=== PATIENT | female | born 1990 | race Hispanic/Latino ===

== ENCOUNTER 2021-03-17 23:39 | Inpatient (IN) | payer BC ==
[2021-03-18 00:07] VITALS: BMI 31.6
[2021-03-18] MEDS ORDERED: hydrALAZINE 20 MG/ML VIAL SLOW IVP PRN (00:21)
[2021-03-18] MEDS ORDERED: Butorphanol Tartrate 1 MG/ML VIAL ONE (00:23)
[2021-03-18 00:24] LABS: Bilirubin Neg (Negative); Blood, Urine 150 (Negative); Clarity Cloudy (Clear); Glucose, Urine (Dipstick) Normal (Negative); Ketone, Urine 15 mg/dL (Negative); Leukocyte 500 (Negative); Nitrite Negative (Negative); Protein, Urine (Dipstick) 30 mg/dl (Neg-Trace); Specific Gravity, Urine 1.015 (1.002-1.036); Urobilinogen Normal mg/dL (Less than 2); pH, Urine 6.5 (5.0-9.0)
[2021-03-18] MEDS ORDERED: Ondansetron PF 4 MG/2 ML Vial IVP PRN (00:28)
[2021-03-18] MEDS ORDERED: Lactated Ringer's 1,000 ML IV SCH ×2 (00:30)
[2021-03-18 00:34] LABS: Bacteria/HPF 3+ HPF (None Seen); RBC/HPF 21-50 HPF (0-3)
[2021-03-18 00:35] LABS: Urine Culture Reflex No No
[2021-03-18] MEDS: Butorphanol Tartrate 1 MG/ML VIAL SLOW IVP PRN ×2 (00:35→02:09)
[2021-03-18 01:04] LABS: #Eosinphils 0.1 10x3/uL (0.0-0.5); #Monocytes 0.9 10x3/uL (0.0-1.1); #Neutrophils 11.4 10x3/uL (1.5-8.4); %Basophils 0.2 % (0.0-2.0); %Eosinophils 0.4 % (0.0-6.0); %Lymphocytes 11.8 % (18.0-47.0); %Monocytes 6.1 % (0.0-10.0); %Neutrophils 80.9 % (40.0-75.0); Hemoglobin 12.5 g/dL (12.0-15.5); Mean Corpuscular HGB CONC 33.8 g/dL (32.0-36.0); Mean Corpuscular Hemoglobin 31.3 pg (27.0-33.0); Mean Corpuscular Volume 92.5 fl (81.6-98.3); Mean Platelet Volume 10.7 fl (7.4-10.4); Platelet Count 184 10x3/uL (150-450); RBC Distribution Width 12.5 % (11.5-14.5); White Blood Cell (WBC) Count 14.1 10x3/uL (3.5-10.5)
[2021-03-18 01:23] LABS: Platelet Morphology Comment PLT clumps seen-ADEQ; RBC Morphology Normal
[2021-03-18 01:34] LABS: ALT (SGPT) 22 U/L (8-55); AST (SGOT) 20 U/L (5-34); Albumin 3.2 g/dL (3.5-5.0); Alkaline Phosphatase 100 U/L (40-110); Anion Gap 14 mmol/L (10-20); BUN (Urea Nitrogen) 12 mg/dL (7.0-18.7); Bilirubin, Total 0.2 mg/dL (0.2-1.2); Calc. Creatinine Clearance 141 mL/min (70-130); Calcium 8.4 mg/dL (7.8-10.44); Carbon Dioxide 19 mmol/L (22-29); Chloride 108 mmol/L (98-107); Globulin 2.7 g/dL (2.4-3.5); Glucose 86 mg/dL (70-105); Potassium 3.6 mmol/L (3.5-5.1); Protein, Total 5.9 g/dL (6.0-8.3); Sodium 137 mmol/L (136-145)
[2021-03-18] MEDS: Sodium Chloride 0.9% 1,000 ML IV SCH ×2 (01:50→18:02)
[2021-03-18] MEDS ORDERED: cefTRIAXone\\ROCEPHIN 1 GM in Sodium Chloride 0.9% 100 ML IVPB SCH (02:00)
[2021-03-18 03:13] LABS: SARS-CoV-2 NAA Rapid Test Not Detected (NotDetected)
[2021-03-18] MEDS ORDERED: Morphine 4 MG/ML VIAL ONE (03:45)
[2021-03-18] MEDS: Acetaminophen 325 MG TAB PO PRN ×2 (03:56→14:39)
[2021-03-18] MEDS ORDERED: Morphine 4 MG/ML VIAL SLOW IVP SCH (04:00)
[2021-03-18] MEDS: Morphine 4 MG/ML VIAL SLOW IVP PRN (11:01)
[2021-03-18 11:28] LABS: Bilirubin Neg (Negative); Blood, Urine 50 (Negative); Clarity Clear (Clear); Glucose, Urine (Dipstick) Normal (Negative); Ketone, Urine 150 mg/dL (Negative); Leukocyte 500 (Negative); Nitrite Negative (Negative); Protein, Urine (Dipstick) 15 mg/dl (Neg-Trace); Urobilinogen Normal mg/dL (Less than 2)
[2021-03-18 11:36] LABS: Bacteria/HPF Rare-Few HPF (None Seen)
[2021-03-18] MEDS: cefTRIAXone\\ROCEPHIN 1 GM in Sodium Chloride 0.9% 100 ML IVPB SCH (14:33)
[2021-03-18] MEDS: Ondansetron PF 4 MG/2 ML Vial IVP SCH ×2 (14:33→19:36)
[2021-03-18] MEDS ORDERED: Mag-Al 1200 mg/1200 mg/30 ML UDCUP PO PRN (15:35)
[2021-03-18] MEDS ORDERED: Dextrose 5%-Lactated Ringers 1,000 ML IV SCH (15:45)
[2021-03-18] MEDS: D5 NS w/ 40 mEq KCl 1,000 ML IV SCH (17:09)
[2021-03-18] MEDS: Metoclopramide HCl 10 MG/2 ML VIAL IVP SCH ×2 (17:09→23:54)
[2021-03-19] MEDS: cefTRIAXone\\ROCEPHIN 1 GM in Sodium Chloride 0.9% 100 ML IVPB SCH ×2 (01:25→14:03)
[2021-03-19] MEDS: Ondansetron PF 4 MG/2 ML Vial IVP SCH ×4 (01:27→20:10)
[2021-03-19] MEDS: D5 NS w/ 40 mEq KCl 1,000 ML IV SCH ×3 (01:42→20:10)
[2021-03-19] MEDS: Metoclopramide HCl 10 MG/2 ML VIAL IVP SCH ×2 (08:35→16:22)
[2021-03-19] MEDS: Pantoprazole 40 MG VIAL IVP SCH (08:36)
[2021-03-19] MEDS: Butorphanol Tartrate 1 MG/ML VIAL SLOW IVP PRN (14:28)
[2021-03-19] MEDS: Morphine 4 MG/ML VIAL SLOW IVP PRN (16:22)
[2021-03-19] MEDS: Acetaminophen 500 MG TAB PO PRN (17:33)
[2021-03-19] MEDS: Cyclobenzaprine 10 MG TAB PO PRN (17:34)
[2021-03-20] MEDS: D5 NS w/ 40 mEq KCl 1,000 ML IV SCH ×2 (00:05→04:35)
[2021-03-20] MEDS: Metoclopramide HCl 10 MG/2 ML VIAL IVP SCH ×2 (00:06→09:08)
[2021-03-20] MEDS: cefTRIAXone\\ROCEPHIN 1 GM in Sodium Chloride 0.9% 100 ML IVPB SCH (02:55)
[2021-03-20] MEDS: Acetaminophen 500 MG TAB PO PRN ×2 (02:55→12:33)
[2021-03-20] MEDS: Ondansetron PF 4 MG/2 ML Vial IVP SCH ×2 (02:55→09:05)
[2021-03-20] MEDS: Cyclobenzaprine 10 MG TAB PO PRN ×2 (02:56→12:33)
[2021-03-20] MEDS ORDERED: Nitrofurantoin Monohyd/M-Cryst 100 MG CAP PO SCH (09:00)
[2021-03-20] MEDS: Pantoprazole 40 MG VIAL IVP SCH (09:02)
[2021-03-20 11:49] VITALS: BP 102/65; TEMP 98.1
== END 2021-03-20 16:00 | disposition home or self-care (01) | DRG 832 ==
LOC: CSHLD/OP 23:39 → CSHLD 03-18 02:26 → CSHANTE 03-18 03:42
PROVIDERS: ADMIT Obstetrics & Gynecology; ATTEND Obstetrics & Gynecology
DX: O23.03 Infections of kidney in pregnancy, third trimester (principal); N13.6 Pyonephrosis; Z3A.30 30 weeks gestation of pregnancy; O24.410 Gestational diabetes mellitus in pregnancy, diet controlled; Z20.822 Contact with and (suspected) exposure to COVID-19
CPT/HCPCS: 36415; 36416; 76770; 80053; 81001; 85025; 87086; 99285; C9113; J0595; J0696; J2270; J2405; J2765; J3480; J3490; U0002

== ENCOUNTER 2021-03-21 13:05 | Day surgery (SDC) | payer BC ==
[2021-03-21] MEDS ORDERED: hydrALAZINE 20 MG/ML VIAL SLOW IVP PRN (14:00)
[2021-03-21] MEDS ORDERED: Promethazine HCl 25 MG/ML VIAL IM PRN (14:00)
[2021-03-21] MEDS ORDERED: Lactated Ringer's 1,000 ML IV SCH ×2 (14:00→16:00)
[2021-03-21] MEDS ORDERED: Promethazine HCl 12.5 MG in Sodium Chloride 0.9% 50 ML IVPB PRN (15:58)
== END 2021-03-21 19:25 | disposition home or self-care (01) ==
LOC: CSHLD/OP 13:05
PROVIDERS: ATTEND Obstetrics & Gynecology
DX: O23.03 Infections of kidney in pregnancy, third trimester (principal); O99.891 Other specified diseases and conditions complicating pregnancy; N13.30 Unspecified hydronephrosis; Z3A.31 31 weeks gestation of pregnancy; Z79.2 Long term (current) use of antibiotics
CPT/HCPCS: 36416; 76770; J2550

== ENCOUNTER 2021-05-17 08:11 | Outpatient (CLI) | payer BC ==
[2021-05-17 17:57] LABS: SARS-CoV-2 PCR by NAA Not Detected (NotDetected)
== END 2021-05-17 08:12 | disposition home or self-care (01) ==
LOC: CSHLAB 08:11
PROVIDERS: ATTEND Obstetrics & Gynecology
DX: Z20.822 Contact with and (suspected) exposure to COVID-19 (principal)
CPT/HCPCS: U0003; U0005

== ENCOUNTER 2021-05-21 05:30 | Inpatient (IN) | payer BC ==
[~2021-05-21 05:30] MED LIST: Butorphanol Tartrate 1 MG/ML VIAL SLOW IVP PRN; HYDROcodone/Acetaminophen 5/325 mg Tablet PO PRN; Ibuprofen 800 MG TAB PO PRN; Lidocaine 1% (PF) 30 ML VIAL SC PRN; NS w/ Oxytocin 30 units 500 ML IV SCH; NS w/ Oxytocin 30 units 500 ML IVPB SCH; Ondansetron PF 4 MG/2 ML Vial IVP PRN; Promethazine HCl 25 MG/ML VIAL IM PRN; hydrALAZINE 20 MG/ML VIAL SLOW IVP PRN
[2021-05-21 06:09] VITALS: BMI 31.8
[2021-05-21] MEDS: Lactated Ringer's 1,000 ML IV SCH ×2 (06:15→11:40)
[2021-05-21 07:04] LABS: Hemoglobin 13.7 g/dL (12.0-15.5); Mean Corpuscular HGB CONC 34.3 g/dL (32.0-36.0); Mean Corpuscular Hemoglobin 31.6 pg (27.0-33.0); Mean Corpuscular Volume 92.1 fl (81.6-98.3); Platelet Count 122 10x3/uL (150-450); RBC Distribution Width 13.4 % (11.5-14.5); Red Blood Cell (RBC) Count 4.33 10x6/uL (3.90-5.03); White Blood Cell (WBC) Count 9.5 10x3/uL (3.5-10.5)
[2021-05-21 08:51] LABS: Hep B Surf Ag Non-Reactive S/CO (NonReactive)
[2021-05-21 08:53] LABS: Syphilis Antibody Nonreactive (Nonreactive); Syphilis Antibody Index 0.02 S/CO (<1.00 Non-Reactive)
[2021-05-21 09:40] LABS: HBSAg Index 0.18 S/CO (0-0.99)
[2021-05-21] MEDS ORDERED: Misoprostol 200 MCG TAB ONE (14:25)
[2021-05-21] MEDS ORDERED: Methylergonovine 0.2 MG/ML VIAL ONE (14:25)
[2021-05-21] MEDS ORDERED: Misoprostol 200 MCG TAB PO SCH (14:30)
[2021-05-21] MEDS ORDERED: Methylergonovine 0.2 MG/ML VIAL IM SCH (14:30)
[2021-05-21] MEDS ORDERED: Carboprost 250 MCG/ML AMP ONE (15:44)
[2021-05-21] MEDS ORDERED: Benzocaine-Menthol 82.5 ML CAN TOP PRN (16:29)
[2021-05-21] MEDS ORDERED: Lanolin Ointment 7 GM TUBE TOP PRN (16:29)
[2021-05-21] MEDS ORDERED: Bisacodyl 10 MG SUPP PR PRN (16:29)
[2021-05-21] MEDS ORDERED: Boostrix 0.5 ML (Tdap) VIAL IM ONE (16:29)
[2021-05-21] MEDS ORDERED: Preparation H Ointment 28 GM TUBE PR PRN (16:29)
[2021-05-21] MEDS ORDERED: Ondansetron PF 4 MG/2 ML Vial IVP PRN (16:29)
[2021-05-21] MEDS ORDERED: diphenhydrAMINE 25 MG CAP PO PRN (16:29)
[2021-05-21] MEDS ORDERED: HYDROcodone/Acetaminophen 5/325 mg Tablet PO PRN ×2 (16:29)
[2021-05-21] MEDS ORDERED: Milk Of Magnesia 30 ML UDCUP PO PRN (16:29)
[2021-05-21] MEDS ORDERED: hydrALAZINE 20 MG/ML VIAL SLOW IVP PRN (16:29)
[2021-05-21] MEDS: Ibuprofen 800 MG TAB PO SCH ×2 (16:38→23:06)
[2021-05-21] MEDS: Ferrous Sulfate 325 MG TAB PO SCH (18:06)
[2021-05-21] MEDS: Docusate Calcium (SURFAK) 240 MG CAP PO SCH (20:33)
[2021-05-22] MEDS: Ibuprofen 800 MG TAB PO SCH ×2 (06:18→13:14)
[2021-05-22 06:31] LABS: Hemoglobin 11.6 g/dL (12.0-15.5)
[2021-05-22] MEDS: Ferrous Sulfate 325 MG TAB PO SCH ×2 (07:36→15:28)
[2021-05-22] MEDS: Docusate Calcium (SURFAK) 240 MG CAP PO SCH (08:38)
[2021-05-22] MEDS ORDERED: Prenatal Vitamin 1 TAB PO SCH (09:00)
[2021-05-22 11:40] VITALS: BP 122/80; TEMP 97.6
== END 2021-05-22 15:50 | disposition home or self-care (01) | DRG 807 ==
LOC: CSHLD 05:31 → CSHPP 16:45
PROVIDERS: ADMIT Obstetrics & Gynecology; ATTEND Obstetrics & Gynecology
PROC: 10E0XZZ Delivery of Products of Conception, External Approach (ICD-10-PCS; principal; 2021-05-21)
DX: O24.429 Gestational diabetes mellitus in childbirth, unspecified control (principal); Z37.0 Single live birth; Z3A.39 39 weeks gestation of pregnancy; O70.0 First degree perineal laceration during delivery; O75.89 Other specified complications of labor and delivery; O69.89X0 Labor and delivery complicated by other cord complications, not applicable or unspecified
CPT/HCPCS: 36415; 85014; 85018; 85027; 86780; 86850; 86900; 86901; 87340; J0595; J2210; J2405; J2590; J7120

== ENCOUNTER 2023-10-09 19:03 | Emergency (ER) | payer OTHER ==
[2023-10-09 20:08] LABS: ALT (SGPT) 17 U/L (8-55); AST (SGOT) 18 U/L (5-34); Alkaline Phosphatase 67 U/L (40-110); Anion Gap 13 mmol/L (10-20); BUN (Urea Nitrogen) 10 mg/dL (7.0-18.7); Bilirubin, Total 0.3 mg/dL (0.2-1.2); Calc. Creatinine Clearance 0 mL/min (70-130); Carbon Dioxide 19 mmol/L (22-29); Chloride 106 mmol/L (98-107); Estimated GFR 119; Globulin 3.7 g/dL (2.4-3.5); Glucose 96 mg/dL (70-105); Lipase 60 U/L (8-78); Potassium 3.6 mmol/L (3.5-5.1); Protein, Total 6.7 g/dL (6.0-8.3); Sodium 134 mmol/L (136-145)
[2023-10-09 20:10] LABS: #Basophils 0.03 10x3/uL (0.0-0.2); #Eosinphils 0.09 10x3/uL (0.0-0.5); #Monocytes 0.79 10x3/uL (0.0-1.1); #Neutrophils 9.34 10x3/uL (1.5-8.4); %Basophils 0.2 % (0.0-2.0); %Eosinophils 0.7 % (0.0-6.0); %Monocytes 6.5 % (0.0-10.0); %Neutrophils 76.9 % (40.0-75.0); Hematocrit 36.1 % (34.9-44.5); Hemoglobin 11.9 g/dL (12.0-15.5); Mean Corpuscular Hemoglobin 32.2 pg (27.0-33.0); Mean Corpuscular Volume 97.6 fl (81.6-98.3); Mean Platelet Volume 9.7 fl (7.4-10.4); Platelet Count 200 10x3/uL (150-450); RBC Distribution Width 12.7 % (11.5-14.5); White Blood Cell (WBC) Count 12.2 10x3/uL (3.5-10.5)
[2023-10-09 20:39] LABS: Bilirubin Neg (Negative); Blood, Urine 10 (Negative); Clarity Clear (Clear); Glucose, Urine (Dipstick) Normal (Negative); Ketone, Urine Negative (Negative); Leukocyte 100 (Negative); Nitrite Negative (Negative); Protein, Urine (Dipstick) Negative (Neg-Trace); Urobilinogen Normal mg/dL (Less than 2)
[2023-10-09 20:50] LABS: Bacteria/HPF 1+ HPF (None Seen); CAUTI Indications for Culture Pregnancy; RBC/HPF 0-3 HPF (0-3); Squamous Epithelial 0-3 HPF (0-3); Urine Culture Reflex Yes Yes; WBC/HPF 0-3 HPF (0-3)
== END 2023-10-09 22:00 | disposition home or self-care (01) ==
LOC: CSHERS 19:03
DX: K80.20 Calculus of gallbladder without cholecystitis without obstruction (principal)
CPT/HCPCS: 36415; 76705; 80053; 81001; 83690; 85025; 87086